=== PATIENT | female | born 1955 | race Caucasian/White ===

== ENCOUNTER 2017-02-15 13:19 | Emergency (ER) | payer MEDICAID ==
[2017-02-15 13:28] VITALS: RESP 18; TEMP 98.4
--- NOTE | 2017-02-15 14:48 | EDPHY ---
H & P Time Seen by Provider: 02/15/17 14:01 HPI/ROS: CHIEF COMPLAINT: [left wrist pain] HISTORY OF PRESENT ILLNESS: 61-year-old avkiy-sbwa-kfaobrzu female presents emergency department complaining of left wrist pain. Patient slipped on water and fell on outstretched left hand. She denies head strike, no neck pain, no elbow pain. No numbness or tingling in her hand, no other complaints. Smoking Status: Never smoked Physical Exam: GEN: Awake, alert, oriented, no acute distress RESP: nl resp effort MSK: Left wrist with tenderness to palpation to distal radius, no snuffbox tenderness, no ulnar styloid tenderness, full range of motion of left elbow, no swelling, sensation intact to light touch, 2+ radial pulses SKIN: No break in skin Constitutional: Initial Vital Signs Temperature (C) 36.9 C 02/15/17 13:20 Heart Rate 80 02/15/17 13:20 Respiratory Rate 18 02/15/17 13:20 Blood Pressure 124/77 H 02/15/17 13:20 O2 Sat (%) 97 02/15/17 13:20 O2 Delivery Mode Room Air Allergies/Adverse Reactions: Penicillins Allergy (Intermediate, Verified 02/15/17 13:27) HIVES,THROAT SWELLING Sulfa (Sulfonamide Antibiotics) Allergy (Mild, Verified 02/15/17 13:27) HIVES, THROAT SWELLING erythromycin base Allergy (Verified 02/15/17 13:27) Rash NSAIDS (Non-Steroidal Anti-Inflamma Allergy (Verified 02/15/17 13:27) Wheezing prednisone Allergy (Verified 02/15/17 13:27) Other-Enter Comments MYCIN Allergy (Uncoded 01/10/16 09:58) Rash Home Medications: Medication Instructions Recorded Herbals/Supplements -Info Only PO DAILY 01/10/16 Levothyroxine 25 mcg PO DAILY 01/10/16 Hydroxyurea [Hydrea 500 mg (*)] 500 mg PO 02/15/17 MDM/Departure - MDM Imaging Results: Imaging Impressions Wrist X-Ray 02/15/17 13:38 Impression: Nothing acute identified. Suspect old triquetral avulsion injury. Imaging: I viewed and interpreted images myself - Depart Disposition: Home, Routine, Self-Care Clinical Impression: Left wrist injury Qualifiers: Encounter type: initial encounter Qualified Code(s): S69.92XA - Unspecified injury of left wrist, hand and finger(s), initial encounter Condition: Good Instructions: Wrist Injury (ED) Additional Instructions: Rest, ice, elevate, take 600 mg of ibuprofen every 8 hours with food for 3-5 days. Wear Velcro wrist splint for comfort. Follow up with orthopedist for pain that is not improving in the next 7-10 days. Return to the emergency department for any pain that is not controlled, numbness or tingling to your hand, any new symptoms or concerns. Referrals: Bobby Bull MD [Medical Doctor] - As per Instructions (orthopedist business process consultant)
[2017-02-15 15:00] VITALS: BP 132/84; PULSE 91; O2SAT 96
== END 2017-02-15 14:59 | disposition home or self-care (01) ==
DX: S69.92XA Unspecified injury of left wrist, hand and finger(s), initial encounter (principal); W01.0XXA Fall on same level from slipping, tripping and stumbling without subsequent striking against object, initial encounter; Y99.8 Other external cause status
CPT/HCPCS: L3807

== ENCOUNTER 2017-10-15 10:38 | Day surgery (SDC) | payer MEDICAID ==
[2017-10-15] MEDS ORDERED: LIDOCAINE 1% 2 ML INJ ID PRN (10:50)
[2017-10-15] MEDS ORDERED: LR 1,000 ML IV ONE (10:50)
[2017-10-15 11:09] VITALS: PULSE 70
--- NOTE | 2017-10-15 12:38 | PDGENHP ---
History & Physical Chief Complaint: personal hx polpys History of Present Illness: 61 year old female presents for surveillance of a complex ascending colon polyp Pertinent Past, Social, Family History: PMHx: Polyps, PRV Relevant Physical Exam: HEENT: anicteric sclera. Cv: RRR +s1s2. lungs: CTAB. Abd: soft, nt, + bs Cardiorespiratory Assessment: ASA 2
[2017-10-15] MEDS ORDERED: PROPOFOL 200 MG/20 ML VIAL ONE ×2 (12:40→13:00)
[2017-10-15] MEDS ORDERED: NS 500 ML IV SCH (12:45)
--- NOTE | 2017-10-15 13:16 | PDANEPAE ---
ANE Past Medical History - Cardiovascular History Hx Hypertension: No Hx Arrhythmias: No Hx Chest Pain: No Hx Coronary Artery / Peripheral Vascular Disease: No Hx CHF / Valvular Disease: No Hx Palpitations: No - Pulmonary History Hx COPD: No Hx Asthma/Reactive Airway Disease: No Hx Recent Upper Respiratory Infection: No Hx Oxygen in Use at Home: No Hx Sleep Apnea: No Sleep Apnea Screening Result - Last Documented: Negative - Neurologic History Hx Cerebrovascular Accident: No Hx Seizures: No Hx Dementia: No - Endocrine History Endocrine History Comment: hypothyroid - Renal History Hx Renal Disorders: No - Liver History Hx Hepatic Disorders: No - Neurological & Psychiatric Hx Hx Neurological and Psychiatric Disorders: No - Cancer History Hx Cancer: No - Congenital Disorder History Hx Congenital Disorders: Yes Congenital History Comment: Polycythemia Vera - GI History Hx Gastrointestinal Disorders: Yes Gastrointestinal History Comment: colon polyps - Chronic Pain History Chronic Pain: No - Surgical History Prior Surgeries: hysterectomy. nasal polypectomy ANE Review of Systems Review of Systems: - Exercise capacity METS (RN): 4 METS ANE Patient History - Allergies Allergies/Adverse Reactions: aspirin Allergy (Intermediate, Verified 09/26/17 10:37) Penicillins Allergy (Intermediate, Verified 02/15/17 13:27) HIVES,THROAT SWELLING Sulfa (Sulfonamide Antibiotics) Allergy (Mild, Verified 02/15/17 13:27) HIVES, THROAT SWELLING erythromycin base Allergy (Verified 02/15/17 13:27) Rash NSAIDS (Non-Steroidal Anti-Inflamma Allergy (Verified 02/15/17 13:27) Wheezing MYCIN Allergy (Uncoded 01/10/16 09:58) Rash - Home Medications Home Medications: Herbals/Supplements -Info Only PO DAILY 01/10/16 [Last Taken 10/13/17] Levothyroxine 25 mcg PO DAILY 01/10/16 [Last Taken 10/15/17 07:30] Jakafi 09/26/17 [Last Taken 10/14/17 21:30] - NPO status NPO Since - Liquids (Date): 10/14/17 NPO Since - Liquids (Time): 08:45 NPO Since - Solids (Date): 10/13/17 NPO Since - Solids (Time): 19:30 - Smoking Hx Smoking Status: Former smoker - Family Anes Hx Family Hx Anesthesia Complications: none ANE Labs/Vital Signs - Vital Signs Blood Pressure: 139/73 Heart Rate: 70 Respiratory Rate: 18 O2 Sat (%): 96 Height: 165.1 cm Weight: 60.781 kg ANE Physical Exam - Airway Neck exam: FROM Mallampati Score: Class 1 Mouth exam: normal dental/mouth exam - Pulmonary Pulmonary: no respiratory distress - Cardiovascular Cardiovascular: regular rate and rhythym - ASA Status ASA Status: II ANE Anesthesia Plan Anesthesia Plan: MAC Urgent/Emergent Case: Michael rosas completed preop but documented later for safe timely pt care
[2017-10-15] MEDS ORDERED: ONDANSETRON 4 MG/2 ML VIAL IVP PRN (13:17)
[2017-10-15] MEDS ORDERED: LR 500 ML IV PRN (13:17)
[2017-10-15] MEDS ORDERED: fentaNYL 100 MCG/2 ML INJ IVP PRN (13:17)
[2017-10-15] MEDS ORDERED: NALOXONE HCL 0.4 MG/ML INJ IVP PRN (13:17)
--- NOTE | 2017-10-15 13:17 | POSTANESTH ---
Post Anesthetic Evaluation Cardiovascular Status: Normal, Stable Respiratory Status: Normal, Stable, Requires Airway Assist Pain Control: Adequate, Prn Tx Ordered Nausea/Vomiting Control: Adequate, Prn Tx Ordered Complications Possibly Related to Anesthesia: None Noted
--- NOTE | 2017-10-15 13:27 | GIREPORT ---
[facility] Surgical Services - Endoscopy Department Patient Name: Vee Bonner Procedure Date: 10/15/2017 12:31 PM Patient Type: Outpatient Attending / ER Physician: Charles Warner MD Procedure: Colonoscopy Indications: High risk colon cancer surveillance: Personal history of colonic polyps Patient Profile: 61 year old female presents for surveillance colonoscopy. Providers: Charles Warner MD Medicines: Monitored Anesthesia Care Complications: No immediate complications. Estimated blood loss: Minimal. Description of Procedure: After obtaining informed consent, the scope was passed under direct vis ion. Throughout the procedure, the patient's blood pressure, pulse, and oxyg en saturations were monitored continuously. The Colonoscope with irrigatio n channel was introduced through the anus and advanced to the cecum, identified by appendiceal orifice and ileocecal valve. The colonoscopy was performed without difficulty. The patient tolerated the procedure well. The quality of the bowel preparation was good. The ileocecal valve, appendi ceal orifice, and rectum were photographed. Findings: The perianal and digital rectal examinations were normal. Pertinent negatives include normal prostate (size, shape, and consistency). A 2 mm polyp was found in the cecum. The polyp was sessile. The polyp w as removed with a cold biopsy forceps. Resection and retrieval were comple te. A 4 mm polyp was found in the rectum. The polyp was sessile. The polyp was removed with a cold snare. Resection and retrieval were complete. Estimated Blood Loss: Estimated blood loss was minimal. Post Op Diagnosis: - One 2 mm polyp in the cecum, removed with a cold biopsy forceps. Rese cted and retrieved. - One 4 mm polyp in the rectum, removed with a cold snare. Resected and retrieved. Recommendation: - Discharge patient to home (with escort). - Resume previous diet. - Continue present medications. - Repeat colonoscopy in 5 years for surveillance. - Await pathology results. - Thank you for allowing me to participate in the care of your patient. Attending Participation: I personally performed the entire procedure. Charles Warner MD Charles Warner MD 10/15/2017 1:27:25 PM This report has been signed electronicallyCharles Warner MD Number of Addenda: 0 Note Initiated On: 10/15/2017 12:31 PM Total Procedure Duration Time 0 hours 20 minutes 48 seconds [email or web address]
[2017-10-15 13:36] VITALS: TEMP 97.7
[2017-10-15 14:28] VITALS: BP 126/76; O2SAT 97
[2017-10-15 14:30] VITALS: RESP 16
== END 2017-10-15 14:15 | disposition home or self-care (01) ==
LOC: FSGY 10:38
PROVIDERS: ATTEND Internal Medicine Gastroenterology
DX: Z12.11 Encounter for screening for malignant neoplasm of colon (principal); D12.0 Benign neoplasm of cecum; K62.1 Rectal polyp
CPT/HCPCS: J2704